=== PATIENT | female | born 1975 | race Caucasian/White ===

== ENCOUNTER 2025-03-04 23:27 | Day surgery (SDC) | payer OTHER ==
[2025-03-05] MEDS: Ondansetron 4 MG Tab.DIS PO ONE (02:13)
[2025-03-05] MEDS: Nitroglycerin 0.4 MG Tab.SL SL ONE (02:47)
[2025-03-05] MEDS ORDERED: fentaNYL 100 MCG/2 ML SDV ONE (07:11)
[2025-03-05] MEDS ORDERED: Midazolam 1 MG/ML 2 ML SDV ONE (07:11)
[2025-03-05] MEDS ORDERED: Propofol 200 MG/20 ML SDV ONE ×2 (07:11→07:36)
[2025-03-05] MEDS ORDERED: Succinylcholine 200 MG/10 ML MDV ONE (07:36)
[2025-03-05] MEDS ORDERED: Dexamethasone 4 MG/ML SDV ONE (07:36)
[2025-03-05] MEDS ORDERED: Ondansetron 4 MG/2 ML SDV ONE (07:36)
[2025-03-05] MEDS ORDERED: Lactated Ringers 1,000 ML ONE (07:40)
[2025-03-05] MEDS: Ketorolac 30 MG/ML SDV IVPUSH ONE (09:06)
== END 2025-03-05 ==
LOC: JP.ED 23:27 → JP.SDS 03-05 08:00 → JP.ED 03-05 10:39
PROVIDERS: ATTEND Surgery
DX: T18.128A Food in esophagus causing other injury, initial encounter (principal); Z79.899 Other long term (current) drug therapy
CPT/HCPCS: 00731; 43247; A9270; C1726; J0330; J1100; J1610; J1885; J2250; J2405; J2704; J3010; J7120; Q0162; 99283; J3490